=== PATIENT | male | born 1990 | race Two or more races ===

== ENCOUNTER 2018-06-23 20:16 | Emergency (ER) | payer SELFPAY ==
[~2018-06-23] VITALS: Ht 190.5 cm; Wt 89.8 kg
[2018-06-23 20:48] VITALS: BP 111/74
[2018-06-23] MEDS ORDERED: Isovue-300 100ml vial INJ PRN (21:15)
[2018-06-23] MEDS ORDERED: Morphine Sulfate 4mg/ml Inj (IV/IM USE ONLY) IVP ONE (21:15)
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
[2018-06-23] MEDS ORDERED: Hydromorphone 0.5mg/0.5ml inj IVP ONE (21:30)
[2018-06-23 21:46] LABS: BASOPHILS % (AUTO) 1.2 % (0.0-2.0); EOSINOPHILS % (AUTO) 1.1 % (0.0-3.0); HEMATOCRIT 46.8 % (42.0-52.0); HEMOGLOBIN 15.6 G/DL (14.2-18.0); LYMPHOCYTES % (AUTO) 40.5 % (20.0-45.0); MEAN CORPUSCULAR VOLUME 86 FL (80-99); MONOCYTES % (AUTO) 4.3 % (1.0-10.0); NEUTROPHILS % (AUTO) 52.9 % (45.0-75.0); PLATELET COUNT 254 K/UL (150-450); RED BLOOD COUNT 5.42 M/UL (4.70-6.10); RED CELL DISTRIBUTION WIDTH 10.4 % (11.6-14.8); WHITE BLOOD COUNT 10.2 K/UL (4.8-10.8)
[2018-06-23 21:58] LABS: ANION GAP 6 mmol/L (5-15); BLOOD UREA NITROGEN 16 mg/dL (7-18); CALCIUM 9.4 MG/DL (8.5-10.1); CARBON DIOXIDE 31 MMOL/L (21-32); CHLORIDE 99 MMOL/L (98-107); CREATININE 1.3 MG/DL (0.55-1.30); POTASSIUM 4.6 MMOL/L (3.5-5.1); SODIUM 136 MMOL/L (136-145)
[2018-06-23 22:02] LABS: ALANINE AMINOTRANSFERASE 14 U/L (12-78); ALBUMIN 4.1 G/DL (3.4-5.0); ALKALINE PHOSPHATASE 26 U/L (46-116); ASPARTATE AMINO TRANSFERASE 13 U/L (15-37); BILIRUBIN,TOTAL 0.2 MG/DL (0.2-1.0)
[2018-06-23] MEDS ORDERED: Gadavist 7.5mMol/7.5ml vial IV PRN (22:45)
[2018-06-23 22:50] VITALS: BP 120/87
[2018-06-23] MEDS ORDERED: HYDROmorphone 1mg/ml Carpuject IVP ONE (23:30)
[2018-06-24 00:54] VITALS: BP 116/76
[2018-06-24 02:50] VITALS: BP 118/76
[2018-06-24] MEDS ORDERED: LIDODERM700 M1 TOPIC (03:36)
[2018-06-24] MEDS ORDERED: ROBAXIN-750750 MG PO (03:36)
[2018-06-24] MEDS ORDERED: IBUPROFEN600 MG ORAL (03:36)
[2018-06-24 03:49] VITALS: BP 118/76
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
--- NOTE | 2018-06-24 09:41 | Diagnostic Imaging Report ---
Indication:Abdominal pain Technique: Grayscale and duplex Doppler imaging of the abdomen performed. Comparison: None Findings: The liver is unremarkable. The gallbladder is unremarkable. The demonstrated part of the pancreas, aorta and IVC show no abnormalities. Both kidneys appear unremarkable. The spleen is normal in size. There is no biliary ductal dilatation identified. Doppler evaluation of the main portal vein shows patency. There is no ascites. No hydronephrosis seen. CBD is 4.4 mm. Impression: No acute findings.
--- NOTE | 2018-06-24 11:00 | Diagnostic Imaging Report ---
Indication: Dyspnea Comparison: None A single view chest radiograph was obtained. Findings: Cardiomediastinal appearance is within normal limits for age. The lungs are clear. Pulmonary vascularity is appropriate. The diaphragmatic contour is smooth and costophrenic angles are sharp. No pleural effusions are identified. The bones are unremarkable. Impression: No acute findings
--- NOTE | 2018-06-24 11:00 | Diagnostic Imaging Report ---
Indication: Abdominal pain Comparison: None Single view of the abdomen obtained Findings: Bowel gas pattern is nonspecific. No mass, ectopic calcifications, or abnormal gas collections are identified. The bones are unremarkable. Impression: No acute findings
--- NOTE | 2018-06-24 11:10 | Diagnostic Imaging Report ---
Indication: Back pain Comparison: None Findings: 3 views of the lumbar spine were obtained. Multilevel narrowing of intervertebral disks and associated endplate and facet osteophytes are present. No malalignment identified. No acute fracture definitely seen. Impression: Mild spondylosis. No acute injury appreciated.
--- NOTE | 2018-06-24 11:12 | Diagnostic Imaging Report ---
Indication: Right shoulder pain Findings: 3 views of the right shoulder were obtained. No acute fractures, malalignment, erosions or periostitis are identified. Soft tissues are unremarkable. Impression: Negative for acute injury
--- NOTE | 2018-06-24 11:12 | Diagnostic Imaging Report ---
Indication: Neck Pain Findings: 3 views of the cervical spine were obtained. There is no acute fracture identified. The bones are osteopenic. Alignment is normal. The open-mouth odontoid view shows an intact dens and good alignment of the lateral masses with respect to the body of C2. There is no soft tissue swelling. Impression: Negative cervical spine examination.
== END 2018-06-24 03:49 | disposition home or self-care (01) ==
LOC: EMR 21:22
DX: R51 Headache (principal); R42 Dizziness and giddiness; M54.2 Cervicalgia; R10.12 Left upper quadrant pain; M25.511 Pain in right shoulder; M54.9 Dorsalgia, unspecified; V43.52XA Car driver injured in collision with other type car in traffic accident, initial encounter; Y92.410 Unspecified street and highway as the place of occurrence of the external cause
CPT/HCPCS: 36415; 70551; 71045; 72020; 72052; 72141; 73030; 74019; 74181; 76700; 80053; 83690; 85025; 96361; 96374; 96375; 96376; 99284; J1170; J2405